=== PATIENT | female | born 1990 | race Caucasian/White ===

== ENCOUNTER 2016-07-18 13:02 | Emergency (ER) | payer MEDICAID, OTHER ==
[2016-07-18 13:16] VITALS: BP 153/87
--- NOTE | 2016-07-18 13:33 | UC ---
UC General HPI - HPI Summary HPI Summary: complaint of bumps under her left axilla that she noticed 3 days ago painful when she moves her arm using hot compresses with some relief not able to reduce the swelling taking tylenol and ibuprofen with some relief hx of MRSA - History of Current Complaint Chief Complaint: UCSkin Stated Complaint: SKIN COMPLAINT Time Seen by Provider: 07/18/16 13:15 Hx Obtained From: Patient - Allergy/Home Medications Allergies/Adverse Reactions: Allergies Allergy/AdvReac Type Severity Reaction Status Date / Time Aspirin Allergy Severe Altered Verified 07/18/16 13:09 Mental Status Penicillins [PCN] Allergy Severe Airway Verified 07/18/16 13:09 Obstruction Latex Allergy Hives Verified 07/18/16 13:09 PMH/Surg Hx/FS Hx/Imm Hx Previously Healthy: Yes Endocrine History Of: Denies: Diabetes, Thyroid Disease Cardiovascular History Of: Reports: Hypertension - NO MEDS Denies: Cardiac Disorders Respiratory History Of: Reports: Asthma - On meds Denies: COPD GI/ History Of: Denies: Ulcer Psychological History Of: Reports: Anxiety, Depression - Surgical History Surgical History: Yes Surgery Procedure, Year, and Place: "fluid removed from eardrums". Tonsillectomy. Adenoidectomy - Family History Known Family History: Positive: Cardiac Disease, Hypertension, Diabetes, Other - noncontributory Family History: NON CONTRIBUTORY - Social History Lives: With Family Alcohol Use: None Substance Use Type: None Substance Use Comment - Amount & Last Used: unk pt states occasionally Smoking Status (MU): Heavy Every Day Tobacco Smoker Type: Cigarettes Amount Used/How Often: 1/2 PPD Have You Smoked in the Last Year: No Cessation Counseling: Patient Advised to Stop - Immunization History Most Recent Influenza Vaccination: never Most Recent Tetanus Shot: unknown Most Recent Pneumonia Vaccination: never Review of Systems Constitutional: Negative Skin: Other - swelling in axilla Eyes: Negative ENT: Negative Respiratory: Negative Cardiovascular: Negative Gastrointestinal: Negative Genitourinary: Negative Motor: Negative Neurovascular: Negative Musculoskeletal: Negative Neurological: Negative Psychological: Negative All Other Systems Reviewed And Are Negative: Yes Physical Exam Triage Information Reviewed: Yes Appearance: No Pain Distress, Obese Vital Signs: Initial Vital Signs Temp 98 F 07/18/16 13:10 Pulse 96 07/18/16 13:10 Resp 18 07/18/16 13:10 BP 153/87 07/18/16 13:10 Pulse Ox 98 07/18/16 13:10 Vital Signs Reviewed: Yes Eyes: Positive: Conjunctiva Clear ENT: Positive: Pharynx normal, TMs normal. Negative: Nasal congestion Neck: Positive: No Lymphadenopathy Respiratory: Positive: Lungs clear, Normal breath sounds, No respiratory distress Cardiovascular: Positive: RRR, No Murmur, Pulses Normal Abdomen Description: Positive: Nontender, Soft, Distended Bowel Sounds: Positive: Present Musculoskeletal: Positive: No Edema Neurological: Positive: Alert Psychological Exam: Normal Skin: Positive: Other - left axilla- 2 small lumps in left axilla- no fluctant beneath -firm to touch slight erythema Course/Dx - Course Course Of Treatment: exam completed. no indication for I&D. will start on bactrim and send to dermatology for further evaluation of chronic hidranitis supprative - Differential Dx - Multi-Symptom Provider Diagnoses: hidradenitis supperative Discharge - Discharge Plan Condition: Stable Disposition: HOME Prescriptions: Acetaminophen TAB* [Tylenol TAB*] 650 mg PO Q6H PRN #20 tab PRN Reason: Pain Mupirocin 2% OINT* [Bactroban 2 % Oint*] 1 applic TOPICAL BID #1 tube Sulfamethox/Trimethoprim DS* [Bactrim DS 800/160 TAB*] 1 tab PO BID #14 tab Patient Education Materials: Sulfamethoxazole/Trimethoprim (By mouth) Referrals: Chloé Otto [Medical Doctor] - Yonatan Watson NP [Primary Care Provider] - Additional Instructions: start antibiotic as directed continue to use warm compresses twice a day apply bactroban to any red ariana in axilla or groin as needed please call Dr Hein for further evaluation of hidrandenitis suppurative which may require surgery
== END 2016-07-18 13:56 | disposition home or self-care (01) ==
LOC: UCEAST 13:02
DX: L73.2 Hidradenitis suppurativa (principal); Z88.6 Allergy status to analgesic agent; Z88.0 Allergy status to penicillin
CPT/HCPCS: 99212; G0463

== ENCOUNTER → 2016-09-13 | Emergency (ER) | payer MEDICAID, OTHER ==
[~2016-09-13] MED LIST: Ketorolac INJ* 60 MG/2 ML VIAL IM ONE
--- NOTE | 2016-09-13 13:50 | UC ---
Knee Pain HPI - HPI Summary HPI Summary: Patient was walking down a hill two weeks aog, and hyperextended her knee, pain in the back of the knee and grining when she straightens her knee, also has some sinus pressure and congestion - History of Current Complaint Stated Complaint: KNEE PAIN Time Seen by Provider: 09/13/16 13:50 Hx Obtained From: Patient Hx Last Menstrual Period: 8 MONTHS AGO ?: No Onset/Duration: Sudden Onset, Lasting Weeks Severity Initially: Moderate Severity Currently: Moderate Pain Intensity: 6 Pain Scale Used: 0-10 Numeric Character: Dull, Aching Aggravating Factor(s): Weight Bearing, Prolonged Standing, Stairs Associated Signs And Symptoms: Positive: Swelling Able to Bear Weight: Yes - Risk Factors Septic Arthritis Risk Factor: Negative - Allergies/Home Medications Allergies/Adverse Reactions: Allergies Allergy/AdvReac Type Severity Reaction Status Date / Time Aspirin Allergy Severe Altered Verified 09/13/16 13:54 Mental Status Penicillins [PCN] Allergy Severe Airway Verified 09/13/16 13:54 Obstruction Latex Allergy Hives Verified 09/13/16 13:54 Home Medications: Home Medications DULoxetine CAP* [Cymbalta CAP*] 1 09/13/16 [History] PMH/Surg Hx/FS Hx/Imm Hx Previously Healthy: Yes Endocrine History Of: Denies: Diabetes, Thyroid Disease Cardiovascular History Of: Reports: Hypertension - NO MEDS Denies: Cardiac Disorders Respiratory History Of: Reports: Asthma - On meds Denies: COPD GI/ History Of: Denies: Ulcer Psychological History Of: Reports: Anxiety, Depression - Surgical History Surgical History: Yes Surgery Procedure, Year, and Place: "fluid removed from eardrums". Tonsillectomy. Adenoidectomy - Family History Known Family History: Positive: Cardiac Disease, Hypertension, Diabetes, Other - noncontributory Family History: NON CONTRIBUTORY - Social History Alcohol Use: None Substance Use Type: None Substance Use Comment - Amount & Last Used: unk pt states occasionally Smoking Status (MU): Heavy Every Day Tobacco Smoker Type: Cigarettes Amount Used/How Often: 1/2 PPD Have You Smoked in the Last Year: No - Immunization History Most Recent Influenza Vaccination: never Most Recent Tetanus Shot: unknown Most Recent Pneumonia Vaccination: never Review of Systems Constitutional: Negative Skin: Negative Eyes: Negative ENT: Ear Ache, Nasal Discharge Respiratory: Negative Cardiovascular: Negative Gastrointestinal: Negative Genitourinary: Negative Motor: Negative Neurovascular: Negative Musculoskeletal: Arthralgia, Myalgia Neurological: Negative Psychological: Negative All Other Systems Reviewed And Are Negative: Yes Physical Exam Triage Information Reviewed: Yes Appearance: Well-Appearing, Pain Distress, Obese Vital Signs Reviewed: Yes Eye Exam: Normal Eyes: Positive: Conjunctiva Clear ENT: Positive: Pharynx normal, Other: - bilatera external canals have purulent exudate, Dental Exam: Normal Neck exam: Normal Neck: Positive: Supple, Nontender, No Lymphadenopathy Respiratory Exam: Normal Respiratory: Positive: Chest non-tender, Lungs clear, Normal breath sounds Cardiovascular Exam: Normal Cardiovascular: Positive: RRR, No Murmur, Pulses Normal Abdominal Exam: Normal Abdomen Description: Positive: Nontender, No Organomegaly, Soft Bowel Sounds: Positive: Present Musculoskeletal: Positive: Strength Intact, ROM Intact, No Edema, Other: - Patient has full ROM, chondromalacia noted in bilateral knees. pain with movment in beely of hamsting Neurological Exam: Normal Neurological: Positive: Alert, Muscle Tone Normal Psychological Exam: Normal Knee Pain Course/Dx - Course Course Of Treatment: hx obtained, exam performed, ROm assessed, treated for hamstring strain and bilateral otitis externa - Differential Dx/Diagnosis Differential Diagnosis/HQI/PQRI: Contusion, Sprain, Strain Provider Diagnoses: right hamstring strain. bilateral otitis externa Discharge - Discharge Plan Condition: Stable Disposition: HOME Patient Education Materials: Hamstring Injury (ED), Otitis Externa (ED) Referrals: Yonatan Watson NP [Primary Care Provider] - Rosalee Martinez MD [Medical Doctor] - Additional Instructions: take the medications as prescribed. rest your leg, DO NOT TAKE ANY EXTRA IBUPROFEN TODAY DUE TO YOUR SHOT OF TORADOL NOR WHILE YOU ARE ON THE MELOXICAM. Follow up with Dr Martinez if symptoms do not improve in 2 weeks.
[2016-09-13 13:54] VITALS: BP 159/102
== END | disposition home or self-care (01) ==
LOC: UCEAST 12:44
DX: S86.811A Strain of other muscle(s) and tendon(s) at lower leg level, right leg, initial encounter (principal); X58.XXXA Exposure to other specified factors, initial encounter; Y93.01 Activity, walking, marching and hiking; Y92.828 Other wilderness area as the place of occurrence of the external cause; H60.93 Unspecified otitis externa, bilateral; E66.9 Obesity, unspecified; Z88.6 Allergy status to analgesic agent; Z88.0 Allergy status to penicillin; F17.210 Nicotine dependence, cigarettes, uncomplicated
CPT/HCPCS: 96372; 99212; G0463; J1885

== ENCOUNTER 2016-10-04 19:39 | Emergency (ER) | payer OTHER ==
[2016-10-04 20:01] VITALS: BP 136/80
[2016-10-04] MEDS ORDERED: Ketorolac INJ* 60 MG/2 ML VIAL IM ONE (20:09)
--- NOTE | 2016-10-04 21:23 | RAD ---
Indication: Back pain. 3 views of the lumbar spine are reviewed. The vertebral bodies appear normal in height. Disc spaces all well-preserved. Pedicles appear intact. IMPRESSION: No fracture of the lumbar spine is noted.
[2016-10-04] MEDS ORDERED: Cyclobenzaprine TAB* 10 MG PO ONE (21:25)
--- NOTE | 2016-10-04 21:39 | UC ---
Back Pain HPI - HPI Summary HPI Summary: FALL THREE DAYS AGO BACKWARDS DOWN FLIGHT OF 12 STEPS. SINCE TIME OF INJURY HAS FELT LOW BACK PAIN THAT RADIATES DOWN GLUTEUS. ABLE TO WALK, BUT PAIN WITH BENDING TWISTING, WEIGHT BEARING. NO KNOWN BRUISING. HX OF SCIATIC PAIN IN PAST , SEVERAL YEARS AGO, THIS FEELS SAME/SIMILAR. HAD BEEN TAKING IBUPROFEN WITH NO RELIEF. - History of Current Complaint Hx Obtained From: Patient Hx Last Menstrual Period: 1 year ago ?: No Onset/Duration: Sudden Onset, Lasting Days, Still Present Timing: Constant Severity Initially: Moderate Severity Currently: Moderate Back Pain: Is Discrete @ - LOW BACK, Radiates To - GLUTEUS Character: Dull, Aching, Throbbing, Spasmodic Aggravating: Movement, Lifting, Bending, Walking Alleviating: Rest, Position, Cold, OTC Meds Associated Signs And Symptoms: Positive: Pain with Weight Bearing. Negative: Swelling, Redness, Bruising, Weakness, Numbness, Tingling, Abdominal Pain, Flank Pain, Bladder Incontinence, Bowel Incontinence, Weight Loss Related History: Previous Back Injury - Risk Factors AAA Risk Factors: Negative TAD Risk Factors: Negative Cauda Equina Risk Factors: Negative Epidural Abscess Risk Factors: Negative <Andrei Holcomb - Last Filed: 10/04/16 21:33> <Alejandro Pierce - Last Filed: 10/07/16 11:11> - History of Current Complaint Chief Complaint: UCBackPain Stated Complaint: BACK PAIN Time Seen by Provider: 10/04/16 19:45 - Allergies/Home Medications Allergies/Adverse Reactions: Allergies Allergy/AdvReac Type Severity Reaction Status Date / Time Aspirin Allergy Severe Altered Verified 10/04/16 19:47 Mental Status Penicillins [PCN] Allergy Severe Airway Verified 10/04/16 19:47 Obstruction Latex Allergy Hives Verified 10/04/16 19:47 Home Medications: Home Medications Ibuprofen [Ibuprofen 200 MG] 200 mg PO Q6H PRN 10/04/16 [History Confirmed 10/04] PMH/Surg Hx/FS Hx/Imm Hx Previously Healthy: Yes Endocrine History Of: Denies: Diabetes, Thyroid Disease Cardiovascular History Of: Reports: Hypertension - on med; does not know which one Denies: Cardiac Disorders Respiratory History Of: Reports: Asthma Denies: COPD GI/ History Of: Denies: Ulcer Psychological History Of: Reports: Anxiety, Depression - Surgical History Surgical History: Yes Surgery Procedure, Year, and Place: "fluid removed from eardrums". Tonsillectomy. Adenoidectomy - Family History Known Family History: Positive: Cardiac Disease, Hypertension, Diabetes, Other - noncontributory Family History: NON CONTRIBUTORY - Social History Alcohol Use: None Substance Use Type: None Substance Use Comment - Amount & Last Used: unk pt states occasionally Smoking Status (MU): Current Some Day Smoker Type: Cigarettes Amount Used/How Often: 1/2 PPD Have You Smoked in the Last Year: No - Immunization History Most Recent Influenza Vaccination: fall 2015 Most Recent Tetanus Shot: unknown Most Recent Pneumonia Vaccination: never <Andrei Holcomb - Last Filed: 10/04/16 21:33> Review of Systems Constitutional: Negative Skin: Negative Eyes: Negative ENT: Negative Respiratory: Negative Cardiovascular: Negative Gastrointestinal: Negative Genitourinary: Negative Motor: Negative Neurovascular: Negative Musculoskeletal: Arthralgia, Myalgia Neurological: Negative Psychological: Negative All Other Systems Reviewed And Are Negative: Yes <Andrei Holcomb - Last Filed: 10/04/16 21:33> Physical Exam Triage Information Reviewed: Yes Appearance: Well-Appearing, Well-Nourished, Pain Distress - MODERATE, Obese Vital Signs: Initial Vital Signs Temp 97.9 F 10/04/16 19:51 Pulse 96 10/04/16 19:51 Resp 16 10/04/16 19:51 BP 136/80 10/04/16 19:51 Pulse Ox 98 10/04/16 19:51 Vital Signs Reviewed: Yes Eye Exam: Normal Eyes: Positive: Conjunctiva Clear ENT Exam: Normal ENT: Positive: Normal ENT inspection, Hearing grossly normal, TMs normal Dental Exam: Normal Neck exam: Normal Neck: Positive: Supple, Nontender, No Lymphadenopathy Respiratory Exam: Normal Respiratory: Positive: Chest non-tender, Lungs clear, Normal breath sounds, No respiratory distress, No accessory muscle use Cardiovascular Exam: Normal Cardiovascular: Positive: RRR, No Murmur, Pulses Normal Abdominal Exam: Normal Abdomen Description: Positive: Nontender, No Organomegaly, Soft. Negative: CVA Tenderness (R), CVA Tenderness (L) Musculoskeletal: Positive: Strength Intact, ROM Intact, No Edema, Other: - POSITIVE BILAT STRAIGHT LEG RAISE TEST Neurological Exam: Normal Neurological: Positive: Alert, Muscle Tone Normal Psychological Exam: Normal Psychological: Positive: Normal Response To Family Skin Exam: Normal <AichaAndrei - Last Filed: 10/04/16 21:33> Vital Signs: Initial Vital Signs Temp 97.9 F 10/04/16 19:51 Pulse 96 10/04/16 19:51 Resp 16 10/04/16 19:51 BP 136/80 10/04/16 19:51 Pulse Ox 98 10/04/16 19:51 <Alejandro Pierce - Last Filed: 10/07/16 11:11> Back Pain Course/Dx - Differential Dx/Diagnosis Differential Diagnosis/HQI/PQRI: Fracture, Herniated Disc, Strain, Sprain Provider Diagnoses: LOW BACK CONTUSION MUSCLE STRAIN <AichaAndrei - Last Filed: 10/04/16 21:33> - Course Course Of Treatment: I was available for consultation. This patient was seen by mid level provider. The patient was not presented, seen, or examined by me. WR. <Alejandro Pierce - Last Filed: 10/07/16 11:11> Discharge <AichaAndrei - Last Filed: 10/04/16 21:33> <Alejandro Pierce - Last Filed: 10/07/16 11:11> - Discharge Plan Condition: Stable Disposition: HOME Prescriptions: Cyclobenzaprine TAB* [Flexeril 10 MG TAB*] 10 mg PO TID PRN #15 tab PRN Reason: Spasms Lidocaine PATCH 5%* [Lidoderm 5% Patch*] 2 patch TRANSDERM DAILY #6 patch Naproxen [Naproxen 500 MG TABS] 500 mg PO BID #10 tab Patient Education Materials: Low Back Strain (ED), Acute Low Back Pain (ED) Referrals: Mali Yost MD [Primary Care Provider] - Yonatan Watson NP [Nurse Practitioner] - Additional Instructions: PHYSICAL THERAPY REFERRAL: You have been prescribed physical therapy. Treatments may include stretching, exercise, application of heat or cold, and other modalities. After an injury, PT can reduce swelling and pain. In recovery, PT is used to restore mobility and strength. Your specific treatment goals are: ___X__ Reduction of Swelling (EGS, US, ice as needed) ___X__ Pain Reduction (EGS, US, ice as needed) ____X_ TENS Pack Fitting and Instruction Wound Hydrotherapy ___X__ Preservation of Mobility ___X__ Sikhism of Mobility ___X__ Strength Sikhism ___X__ Work or Sports Hardening This instruction sheet also serves as your PHYSICAL THERAPY REFERRAL! Please take it with you to the therapist, so he/she will be aware of your diagnosis and treatment plan. You may see the physical therapist of your choice for these treatments, but may wish to check with your insurance to be sure the provider you select is covered. It's important to see the doctor to whom you have been referred for follow up.
== END 2016-10-04 21:38 | disposition home or self-care (01) ==
LOC: UCEAST 19:39
DX: S30.0XXA Contusion of lower back and pelvis, initial encounter (principal); S39.012A Strain of muscle, fascia and tendon of lower back, initial encounter; W10.9XXA Fall (on) (from) unspecified stairs and steps, initial encounter; Y93.9 Activity, unspecified; Y92.9 Unspecified place or not applicable; I10 Essential (primary) hypertension; E66.9 Obesity, unspecified; Z32.02 Encounter for pregnancy test, result negative; Z88.6 Allergy status to analgesic agent; Z88.0 Allergy status to penicillin; Z72.0 Tobacco use
CPT/HCPCS: 72100; 81003; 84702; 99212; A9270-GY; G0463; J1885

== ENCOUNTER 2016-11-26 14:48 | Emergency (ER) | payer OTHER ==
[2016-11-26 15:23] VITALS: BP 139/110
--- NOTE | 2016-11-26 16:10 | UC ---
Abdominal Pain Female HPI - HPI Summary HPI Summary: The patient comes in today for: 1. Left-sided abdominal pain: Onset: 3 days. Sudden onset. She went to sleep and then woke up and found the pain there. Palliative/provocative: Moving, coughing, laughing makes it hurt more. Quality: Stabbing sensation. Region: LUQ and radiates down. Severity: 7/10 Time: Constant today. Associated symptoms: LMP: Unknown. Last BM: This morning--normal. Previous treatment: Warm compresses, Tylenol, showers--none helped. Fevers: None known, but she complains of cold chills. Vomiting: NOne. Diarrhea: None. 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 Hx Last Menstrual Period: March 18, 2016 Allergies/Adverse Reactions: Allergies Allergy/AdvReac Type Severity Reaction Status Date / Time Aspirin Allergy Severe Altered Verified 11/26/16 15:23 Mental Status Penicillins [PCN] Allergy Severe Airway Verified 11/26/16 15:23 Obstruction Latex Allergy Hives Verified 11/26/16 15:23 Home Medications: Home Medications Lansoprazole CAP (NF) [Prevacid CAP (NF)] 11/26/16 [History] PMH/Surg Hx/FS Hx/Imm Hx Previously Healthy: No Endocrine History Of: Denies: Diabetes, Thyroid Disease, Hyperthyroidism, Hypothyroidism, Dyslipidemia Cardiovascular History Of: Reports: Hypertension - on med; does not know which one Denies: Cardiac Disorders, Pacemaker/ICD, Myocardial Infarction, Congestive Heart Failure, Atrial Fibrillation, Deep Vein Thrombosis, Bleeding Disorders Respiratory History Of: Reports: Asthma Denies: COPD, Bronchitis, Pneumonia, Pulmonary Embolism GI/ History Of: Reports: Gastroesophageal Reflux Denies: Ulcer, Gastrointestinal Bleed, Gall Bladder Disease, Kidney Stones, Diverticulitis, Renal Disease, Urosepsis Neurological History Of: Reports: Migraine - "I get them quite frequently." But takes no Rx. Denies: TIA, CVA, Dementia, Seizures Psychological History Of: Reports: Anxiety, Depression Denies: Bipolar Disorder, Schizophrenia, Post Traumatic Stress Disorder Cancer History Of: Denies: Lung Cancer, Colorectal Cancer, Breast Cancer, Prostate Cancer, Cervical Cancer Other History Of: Negative For: HIV, Hepatitis B, Hepatitis C, Anticoagulant Therapy - Surgical History Surgical History: Yes Surgery Procedure, Year, and Place: "fluid removed from eardrums". Tonsillectomy. Adenoidectomy - Family History Known Family History: Positive: Cardiac Disease, Hypertension, Diabetes, Other - noncontributory Family History: NON CONTRIBUTORY - Social History Occupation: Unemployed Alcohol Use: None Substance Use Type: None Substance Use Comment - Amount & Last Used: unk pt states occasionally Smoking Status (MU): Light Every Day Tobacco Smoker Type: Cigarettes Amount Used/How Often: 1/2 PPD Have You Smoked in the Last Year: No - Immunization History Most Recent Influenza Vaccination: fall 2015 Most Recent Tetanus Shot: unknown Most Recent Pneumonia Vaccination: never Review of Systems Constitutional: Negative Skin: Rash Eyes: Negative ENT: Negative Respiratory: Negative Cardiovascular: Negative Gastrointestinal: Abdominal Pain Genitourinary: Negative Motor: Negative All Other Systems Reviewed And Are Negative: Yes Physical Exam Triage Information Reviewed: Yes Appearance: Well-Appearing, No Pain Distress - During the abdominal exam, there was no grimacing and after the exam she was animated, and smiling and laughing. , Well-Nourished Vital Signs: Initial Vital Signs Temp 97.4 F 11/26/16 15:13 Pulse 89 11/26/16 15:13 Resp 16 11/26/16 15:13 BP 139/110 11/26/16 15:13 Pulse Ox 100 11/26/16 15:13 Vital Signs Reviewed: Yes Eyes: Positive: Conjunctiva Clear. Negative: Discharge ENT: Positive: Hearing grossly normal. Negative: Pharyngeal erythema, Nasal congestion, Nasal drainage, TM bulging, TM dull, TM red, Tonsillar swelling, Tonsillar exudate Dental: Negative: Gross Decay/Caries @, Dental Fracture @ Neck: Positive: Supple, Nontender, No Lymphadenopathy. Negative: Nuchal Rigidity Respiratory: Positive: Chest non-tender, Lungs clear, No respiratory distress, No accessory muscle use. Negative: Crackles, Wheezing Cardiovascular: Positive: RRR, No Murmur Abdomen Description: Positive: No Organomegaly, Soft. Negative: Nontender - The abdominal exam was very difficult due to the amount of adipose tissue she has. There was tenderness to palpation of the RUQ and the LUQ. There was no obvious peritoneal signs, but again due to the adipose tissue, it was difficult to say., Distended, Guarding Musculoskeletal: Positive: Strength Intact, ROM Intact, No Edema Neurological: Positive: Alert, Muscle Tone Normal Psychological: Positive: Age Appropriate Behavior, Consolable Skin: Negative: rashes, breakdown Abd Pain Female Course/Dx - Course Course Of Treatment: The patient was told that I was not able to exactly diagnose the cause of her abdominal pain and therefore suggested that she go to the ER for further and more in depth evaluation than what we can do here. She did not want to do this and said instead, she was going to wait until she sees her primary care provider about mid week next week. She was told that if she did not go to the ER, she should reconsider if she gets worse. - Differential Dx/Diagnosis Provider Diagnoses: high blood pressure. abdominal pain Discharge - Discharge Plan Condition: Stable Disposition: AGAINST MEDICAL ADVICE Additional Instructions: If you are not going to the ER for evaluation of your abdominal pain, please reconsider if you get worse. Please see your primary care provider as soon as you can for your abdominal pain and high blood pressure.
== END 2016-11-26 16:30 | disposition left against medical advice (07) ==
LOC: UCEAST 14:48
DX: R10.12 Left upper quadrant pain (principal); R10.11 Right upper quadrant pain; I10 Essential (primary) hypertension; J45.909 Unspecified asthma, uncomplicated; K21.9 Gastro-esophageal reflux disease without esophagitis; G43.909 Migraine, unspecified, not intractable, without status migrainosus; F41.8 Other specified anxiety disorders; Z88.6 Allergy status to analgesic agent; Z88.0 Allergy status to penicillin; Z91.040 Latex allergy status; F17.210 Nicotine dependence, cigarettes, uncomplicated
CPT/HCPCS: 99201; G0463

== ENCOUNTER → 2016-11-27 13:41 | Emergency (ER) | payer OTHER ==
[~2016-11-27 13:41] MED LIST changes: +Al Hydrox/Mg Hydrox/Simet LIQ* 30 ML UDC PO ONE; +HYDROcodone/ACETAMIN 5-325 MG* 1 TAB PO ONE; -Ketorolac INJ* 60 MG/2 ML VIAL IM ONE; +Lidocaine 2% VISCOUS* 15 ML UDC PO ONE
[2016-11-27 15:00] LABS: Urine Bilirubin Negative (Negative); Urine Glucose Negative (Negative); Urine Nitrite Negative (Negative)
[2016-11-27 15:30] LABS: Hematocrit 43 % (35-47); Hemoglobin 14.2 g/dl (12.0-16.0); Mean Corpuscular HGB Conc 33 g/dl (31-36); Mean Corpuscular Hemoglobin 30 pg (27-31); Mean Corpuscular Volume 90 fL (80-97); Mean Platelet Volume 8 um3 (7.4-10.4); Red Cell Distribution Width 14 % (10.5-15)
[2016-11-27 15:48] LABS: ALT 20 U/L (7-52); AST 13 U/L (13-39); Albumin 3.9 g/dL (3.2-5.2); Alkaline Phosphatase 60 U/L (34-104); Anion Gap 5 mmol/L (2-11); BUN/Creatinine Ratio 11.8 (8-20); Blood Urea Nitrogen 10 mg/dL (6-24); C Reactive Protein 16.66 mg/L (< 5.00); CO2 Carbon Dioxide 30 mmol/L (22-32); Calcium 9.6 mg/dL (8.6-10.3); Chloride 101 mmol/L (101-111); EGFR African American 102.4 (>60); EGFR Non-African American 79.6 (>60); Globulin 3.5 g/dL (2-4); Glucose 85 mg/dL (70-100); Lipase 21 U/L (11.0-82.0); Potassium 3.9 mmol/L (3.5-5.0); Sodium 136 mmol/L (133-145); Total Protein 7.4 g/dL (6.4-8.9)
--- NOTE | 2016-11-27 16:18 | RAD ---
INDICATION: Right upper quadrant pain. COMPARISON: Comparison is made with a prior CT of the abdomen and pelvis from May 31, 2007. TECHNIQUE: Multiple real-time images of the right upper quadrant were obtained. FINDINGS: The gallbladder appear normal. No gallbladder wall thickening or pericholecystic fluid is present. No intra or extrahepatic ductal distention is present. The common bile duct measured 0.5 cm in diameter. The liver is normal in size and increased in echogenicity most consistent with fatty infiltration. No focal hepatic abnormality is seen. The pancreas is partially obscured by overlying bowel gas. The right kidney is normal in size without evidence for hydronephrosis. IMPRESSION: 1. NORMAL EXAM OF THE GALLBLADDER. 2. FINDINGS MOST CONSISTENT WITH HEPATIC STEATOSIS.
--- NOTE | 2016-11-27 18:09 | RAD ---
INDICATION: Left flank abdominal pain. COMPARISON: Comparison is made with a prior CT of the abdomen and pelvis from May 31, 2007. TECHNIQUE: A CT scan of the abdomen and pelvis was performed without intravenous or oral contrast. Contiguous axial sections were obtained from the lung bases through the symphysis pubis. Images were reconstructed in the coronal and sagittal planes. FINDINGS: The lung bases are clear. No pleural effusion is present. The liver appears mildly enlarged. No focal abnormality is seen on this noncontrast study. No calcified gallstones are noted. The spleen is within normal limits in size. The pancreas appears to be within normal limits. The adrenal glands and kidneys are normal in size. No renal calculi or hydronephrosis is seen. No ureteral or bladder calculi are seen. The aorta is normal in caliber without significant calcific plaque. No significant enlarged retroperitoneal lymph nodes are seen. The stomach, small and large bowel appear nondistended. The appendix is within normal limits. There are diverticuli scattered throughout the colon. There is no evidence for diverticulitis or colitis. There is a small periumbilical hernia containing fat. The uterus is anteverted and normal in size. The right ovary appears slightly prominent although unchanged from the prior CT study. No free intraperitoneal air or fluid is seen. No significant focal osseous abnormality is seen. IMPRESSION: NO EVIDENCE FOR ACUTE FINDING OR CAUSE FOR THE PATIENT'S ABDOMINAL PAIN IS SEEN.
[2016-11-27 18:42] VITALS: BP 140/74
--- NOTE | 2016-11-28 14:31 | ED ---
Raymond Aquino SooYoung, scribed for Arun Johns MD on 11/27/16 at 1446 . Abdominal Pain/Female - HPI Summary HPI Summary: A 26 y/o F presents to ED with c/o intermittent LUQ pain onset approx four days ago. Pt went to [facility] last [place] for same sx, they referred her to ED, but she went home. Associated sx: nausea onset today. Denies: v/d, fever, chills, melena. She describes her baseline including chills. Non drinker, mild smoker. PSHx: tonsillectomy, adenoids. She rates the pain as 9 out of 10. - History of Current Complaint Chief Complaint: EDAbdPain Stated Complaint: ABD PAIN Time Seen by Provider: 11/27/16 14:27 Hx Obtained From: Patient Hx Last Menstrual Period: March 18, 2016 Onset/Duration: Lasting Days, Still Present Timing: Intermittent Episode Lasting Severity Currently: Severe Pain Intensity: 9 Pain Scale Used: 0-10 Numeric Location: Discrete At: LUQ Associated Signs and Symptoms: Positive: Nausea. Negative: Fever, Vomiting, Diarrhea Allergies/Adverse Reactions: Allergies Allergy/AdvReac Type Severity Reaction Status Date / Time Aspirin Allergy Severe Altered Verified 11/27/16 14:37 Mental Status Penicillins [PCN] Allergy Severe Airway Verified 11/27/16 14:37 Obstruction Latex Allergy Hives Verified 11/27/16 14:37 PMH/Surg Hx/FS Hx/Imm Hx Previously Healthy: No Endocrine/Hematology History: Denies: Hx Anticoagulant Therapy, Hx Diabetes, Hx Thyroid Disease Cardiovascular History: Reports: Hx Hypertension - on med; does not know which one Denies: Hx Congestive Heart Failure, Hx Deep Vein Thrombosis, Hx Myocardial Infarction, Hx Pacemaker/ICD Respiratory History: Reports: Hx Asthma Denies: Hx Chronic Obstructive Pulmonary Disease (COPD), Hx Lung Cancer, Hx Pneumonia, Hx Pulmonary Embolism GI History: Denies: Hx Gall Bladder Disease, Hx Gastrointestinal Bleed, Hx Ulcer, Hx Urosepsis History: Denies: Hx Kidney Stones, Hx Renal Disease Neurological History: Reports: Hx Migraine - "I get them quite frequently." But takes no Rx. Denies: Hx Dementia, Hx Seizures, Hx Transient Ischemic Attacks (TIA) Psychiatric History: Reports: Hx Anxiety, Hx Depression, Hx Substance Abuse Denies: Hx Schizophrenia, Hx Bipolar Disorder - Surgical History Surgery Procedure, Year, and Place: "fluid removed from eardrums". Tonsillectomy. 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 Denies: Hx Clostridium Difficile, Hx Hepatitis, Hx Human Immunodeficiency Virus (HIV), Hx Shingles, Hx Tuberculosis, Hx Known/Suspected VRE, Hx Known/ Suspected VRSA, History Other Infectious Disease, Traveled Outside the [place] in Last 30 Days - Family History Known Family History: Positive: Cardiac Disease, Hypertension, Diabetes, Other - noncontributory - Social History Occupation: Unemployed Lives: With Family Alcohol Use: None Hx Substance Use: Yes Substance Use Type: Reports: Marijuana Substance Use Comment - Amount & Last Used: occasional use Hx Tobacco Use: Yes Smoking Status (MU): Light Every Day Tobacco Smoker Type: Cigarettes Amount Used/How Often: 1/2 PPD Have You Smoked in the Last Year: No Review of Systems Negative: Fever, Chills Negative: Erythema Negative: Sore Throat Negative: Chest Pain Negative: Shortness Of Breath, Cough Positive: Abdominal Pain, Nausea. Negative: Vomiting, Diarrhea Positive: other - neg: melena. Negative: dysuria, flank pain Negative: Myalgia, Edema Negative: Rash Neurological: Other - neg: dizziness All Other Systems Reviewed And Are Negative: Yes Physical Exam - Summary Physical Exam Summary: Constitutional: Well-developed, Well-nourished, Alert. (-) Distressed Skin: Warm, Dry HENT: Normocephalic; Atraumatic Eyes: Conjunctiva normal Neck: Musculoskeletal ROM normal neck. (-) JVD, (-) Stridor, (-) Tracheal deviation Cardio: Rhythm regular, rate normal, Heart sounds normal; Intact distal pulses; The pedal pulses are 2+ and symmetric. Radial pulses are 2+ and symmetric. (-) Murmur Pulmonary/Chest wall: Effort normal. (-) Respiratory distress, (-) Wheezes, (-) Rales Abd: Soft, (-) Distension, (-) Guarding, (-) Rebound; MILD RUQ AND EPIGASTRIC TENDERNESS Musculoskeletal: (-) Edema Lymph: (-) Cervical adenopathy Neuro: Alert, Oriented x3 Psych: Mood and affect Normal Triage Information Reviewed: Yes Vital Signs On Initial Exam: Initial Vitals Temp Pulse Resp BP 97.1 F 86 18 174/94 11/27/16 13:42 11/27/16 13:42 11/27/16 13:42 11/27/16 13:42 Vital Signs Reviewed: Yes - [place] Coma Scale Coma Scale Total: 15 Diagnostics - Vital Signs Vital Signs Temp Pulse Resp BP Pulse Ox 11/27/16 14:37 97.7 F 84 18 132/89 100 11/27/16 13:42 97.1 F 86 18 174/94 - Laboratory Result Diagrams: 11/27/16 15:20 11/27/16 15:20 Lab Statement: Any lab studies that have been ordered have been reviewed, and results considered in the medical decision making process. - CT A/P CT CT Interpretation: No Acute Changes - IMPRESSION: NO EVIDENCE FOR ACUTE FINDING OR CAUSE FOR THE PATIENT'S ABDOMINAL PAIN IS SEEN. CT Interpretation Completed By: Radiologist - Ultrasound No standard instances Ultrasound Interpretation: Positive (See Comments) - Gallbladder US: IMPRESSION : 1. NORMAL EXAM OF THE GALLBLADDER. 2. FINDINGS MOST CONSISTENT WITH HEPATIC STEATOSIS. Ultrasound Interpretation Completed By: Radiologist Re-Evaluation - Re-Evaluation 1 Re-Evaluation Time: 17:01 Change: Unchanged Comment: Discussing results with pt and family. No improvement with GI cocktail. 2 Re-Evaluation Time: 18:16 Change: Improved Comment: Discussing CT results with pt. Pt feeling better. Palpated umbilicus and no palpable hernia, no tenderness, no pain. No menses. Abdominal Pain Fem Course/Dx - Course Course Of Treatment: Pt is a 26 y/o F presenting with intermittent LUQ pain onset approx four days ago. Pt went to [facility] last night for same sx, they referred her to ED, but she went home. Associated sx: nausea onset today. Denies : v/d, fever, chills, melena. Pt given GI cocktail, [place] in ED. Gallbladder US shows "1. NORMAL EXAM OF THE GALLBLADDER. 2. FINDINGS MOST CONSISTENT WITH HEPATIC STEATOSIS.". UA results are negative. Elevated CRP. A/P CT is negative. Will D/C home with Nexium, Percocet. F/U on Tuesday with PCP. - Diagnoses Provider Diagnoses: Epigastric pain Discharge - Discharge Plan Condition: Stable Disposition: HOME Prescriptions: Esomeprazole Magnesium [Nexium] 40 mg PO DAILY #30 tab oxyCODONE/Acetamin 5/325 MG* [Percocet 5/325 TAB*] 1 - 2 tab PO Q6H PRN #8 tab MDD 8 PRN Reason: Pain Scale 6-10 Patient Education Materials: Oxycodone/Acetaminophen (By mouth), Esomeprazole ( By mouth), Epigastric Pain (ED) Referrals: Yonatan Watson WEB SERVICES PROFESSIONAL [Primary Care Provider] - 2 Days Additional Instructions: Follow up with your primary care provider on Tuesday. Return to the emergency department for changing or worsening symptoms. The documentation as recorded by the Raymond foley SooYoung accurately reflects the service I personally performed and the decisions made by , Arun Johns MD.
== END | disposition home or self-care (01) ==
LOC: ED 13:41
DX: R10.13 Epigastric pain (principal); R10.12 Left upper quadrant pain; R11.0 Nausea; F17.210 Nicotine dependence, cigarettes, uncomplicated
CPT/HCPCS: 36415; 74176; 76705; 80053; 81003; 83605; 83690; 84702; 85025; 86140; 99283; A9270-GY

== ENCOUNTER 2017-02-08 13:41 | Emergency (ER) | payer OTHER ==
[2017-02-08] MEDS ORDERED: Azithromycin TAB* 250 MG PO ONE (16:05)
--- NOTE | 2017-02-08 16:07 | UC ---
Throat Pain/Nasal Janusz HPI - HPI Summary HPI Summary: 26 female presents with complaints of throat pain, nasal congestion, body aches , headache and ears feeling plugged bilaterally that has been ongoing for the past 2 days. Patient's symptoms have been getting worse. She has not taken any medication. Denies known fever however admits to chills. States she is prone to ear infections, denies known sick contacts. Denies cough. States throat is sore upon swallowing. Denies difficulty breathing, chest pain, nausea, vomiting and abdominal pain. States she did have diarrhea a day ago. Denies PMHx. - History of Current Complaint Hx Obtained From: Patient ?: No Onset/Duration: Sudden Onset, Lasting Days, Still Present, Worse Since Severity: Moderate Pain Intensity: 10 Pain Scale Used: 0-10 Numeric Cough: None Associated Signs & Symptoms: Positive: Dysphagia, Sinus Discomfort - nasal congestion, Fever - Epiglottits Risk Factors Epiglottis Risk Factors: Negative <Janette Page - Last Filed: 02/08/17 16:17> <Lisa Martin - Last Filed: 02/09/17 06:52> - History of Current Complaint Chief Complaint: UCGeneralIllness Stated Complaint: THROAT PAIN Time Seen by Provider: 02/08/17 14:49 - Allergies/Home Medications Allergies/Adverse Reactions: Allergies Allergy/AdvReac Type Severity Reaction Status Date / Time Aspirin Allergy Severe Altered Verified 02/08/17 13:57 Mental Status Penicillins [PCN] Allergy Severe Airway Verified 02/08/17 13:57 Obstruction Latex Allergy Hives Verified 02/08/17 13:57 Home Medications: Home Medications Budesonide/Formote 80/4.5(NF) [Symbicort 80/4.5 (NF)] 1 puff PO DAILY 02/08/17 [ History Confirmed 02/08/17] PMH/Surg Hx/FS Hx/Imm Hx - Additional Past Medical History Additional PMH: prone and hx of otitis media Cardiovascular History: Hypertension Other History Of: Negative For: HIV, Hepatitis B, Hepatitis C, Anticoagulant Therapy - Surgical History Surgical History: Yes Surgery Procedure, Year, and Place: "fluid removed from eardrums". Tonsillectomy. Adenoidectomy - Family History Known Family History: Positive: Cardiac Disease, Hypertension, Diabetes, Other - noncontributory Family History: NON CONTRIBUTORY - Social History Alcohol Use: Occasionally Substance Use Type: Marijuana Substance Use Comment - Amount & Last Used: occasional use Smoking Status (MU): Light Every Day Tobacco Smoker Type: Cigarettes Amount Used/How Often: 1/2 PPD Have You Smoked in the Last Year: No - Immunization History Most Recent Influenza Vaccination: fall 2015 Most Recent Tetanus Shot: unknown Most Recent Pneumonia Vaccination: never <Janette Page - Last Filed: 02/08/17 16:17> Review of Systems Constitutional: Chills Skin: Negative Eyes: Negative ENT: Sore Throat, Ear Ache, Nasal Discharge Respiratory: Negative Cardiovascular: Negative Gastrointestinal: Diarrhea Motor: Negative Neurovascular: Negative Musculoskeletal: Myalgia - body aches All Other Systems Reviewed And Are Negative: Yes <Janette Page - Last Filed: 02/08/17 16:17> Physical Exam Triage Information Reviewed: Yes Appearance: Well-Appearing, No Pain Distress, Well-Nourished Vital Signs: Initial Vital Signs Temp 98.4 F 02/08/17 13:51 Pulse 92 02/08/17 13:51 Resp 20 02/08/17 13:51 BP 136/87 02/08/17 13:51 Pulse Ox 98 02/08/17 13:51 Vital Signs Reviewed: Yes Eyes: Positive: Conjunctiva Clear ENT: Positive: Normal ENT inspection, Hearing grossly normal, Pharyngeal erythema, Nasal congestion, TM bulging, TM dull, TM red - left side with exudate. Negative: Tonsillar swelling - no tonsils visualized, Trismus, Muffled /hoarse voice Dental: Positive: Cervical Lymphadenopathy - bilateral Neck: Positive: Supple, Nontender Respiratory: Positive: Chest non-tender, Lungs clear, Normal breath sounds, No respiratory distress, No accessory muscle use. Negative: Wheezing Cardiovascular: Positive: RRR, No Murmur, Pulses Normal, Brisk Capillary Refill Bowel Sounds: Positive: Present Musculoskeletal: Positive: Strength Intact, ROM Intact Neurological: Positive: Alert, Muscle Tone Normal Psychological: Positive: Age Appropriate Behavior Skin Exam: Normal <Janette Page - Last Filed: 02/08/17 16:17> Vital Signs: Initial Vital Signs Temp 98.4 F 02/08/17 13:51 Pulse 92 02/08/17 13:51 Resp 20 02/08/17 13:51 BP 136/87 07/25/17 13:51 Pulse Ox 98 02/08/17 13:51 <Lisa Martin - Last Filed: 02/09/17 06:52> Throat Pain/Nasal Course/Dx - Course Course Of Treatment: given first dose of azithromycin while in office. will be treated for otitis media and strep. allergic to PCN. strep obtained and positive. told to take tylenol or ibuprofen for pain/fever. afebrile at this time. fluids and rest. chlroaseptic spray. follow up with pcp. Aware of worsening signs and symptoms to watch out for. - Differential Dx/Diagnosis Differential Diagnosis/HQI/PQRI: Influenza, Laryngitis, Mononucleosis, Otitis Media, Pharyngitis, Sinusitis, Tonsillitis, URI Provider Diagnoses: otitis media- left ear, streptococcal pharyngitis <Janette Page - Last Filed: 02/08/17 16:17> Discharge <Janette Page - Last Filed: 02/08/17 16:17> <Lisa Martin - Last Filed: 02/09/17 06:52> - Discharge Plan Condition: Stable Disposition: HOME Prescriptions: Acetaminophen TAB* [Tylenol TAB*] 650 mg PO Q6H PRN #20 tab PRN Reason: Pain Azithromycin TAB* [Zithromax TAB (Z-MIGUEL) 250 mg #6 tabs] 250 mg PO DAILY #4 tab Patient Education Materials: Strep Throat (ED), Otitis Media (ED) Referrals: Yonatan Watson, AGENCY DIRECTOR [Primary Care Provider] - Additional Instructions: Take prescribed medication as directed starting tomorrow. Follow up with PCP. Drink plenty of fluids and get plenty of rest. If symptoms worsen or do not improve please seek medical attention. Do not submerge ear under water. Keep clean and dry. Tylenol for pain and fever. Attestation Statement Provider Attestation: I was available for consult. This patient was seen by the EMMETT. The patient was not presented to, seen by, or examined by me. -Taitana <Lisa Martin - Last Filed: 02/09/17 06:52>
[2017-02-08 16:26] VITALS: BP 166/98
== END 2017-02-08 16:17 | disposition home or self-care (01) ==
LOC: UCEAST 13:41
DX: H66.92 Otitis media, unspecified, left ear (principal); J02.0 Streptococcal pharyngitis; Z72.0 Tobacco use; I10 Essential (primary) hypertension
CPT/HCPCS: 87651; 99201; 99212; A9270-GY; G0463

== ENCOUNTER 2018-05-24 14:40 | Emergency (ER) | payer SELFPAY ==
[2018-05-24 16:50] LABS: Urine Appearance Cloudy; Urine Blood Negative (Negative); Urine Color Yellow; Urine Ketones Negative (Negative); Urine Protein Negative (Negative); Urine Specific Gravity 1.018 (1.010-1.030); Urine Urobilinogen Negative (Negative)
[2018-05-24] MEDS ORDERED: Ibuprofen TAB* 800 MG PO ONE (17:45)
[2018-05-24 18:00] VITALS: BP 131/95
--- NOTE | 2018-05-24 18:07 | ED ---
Lower Extremity - HPI Summary HPI Summary: Pt. is a 27 y.o female who presents to the ER for a right ankle injury and lower back pain. Pt. states that she twisted are right ankle a few days ago and has been having pain and swelling since. Pt. states she broke same ankle a few years ago. Pt. also notes lower back pain and is concerned she may have a UTI. Denies fever, chills, N/V. Sxs mild in severity. Walking make sxs worse. Rest makes sxs better. No significant past medical hx. Pt. states she does not have a regular menstrual cycle and states she could be . - History of Current Complaint Chief Complaint: EDBackInjuryPain Stated Complaint: RT ANKLE INJURY/ABD PAIN Time Seen by Provider: 05/24/18 15:21 Hx Obtained From: Patient Hx Last Menstrual Period: March 18, 2016 Pain Intensity: 10 Pain Scale Used: 0-10 Numeric - Allergies/Home Medications Allergies/Adverse Reactions: Allergies Allergy/AdvReac Type Severity Reaction Status Date / Time MS Aspirin [Aspirin] Allergy Severe Altered Verified 02/08/17 13:57 Mental Status MS Penicillins [PCN] Allergy Severe Airway Verified 02/08/17 13:57 Obstruction MS Latex [Latex] Allergy Hives Verified 02/08/17 13:57 PMH/Surg Hx/FS Hx/Imm Hx Previously Healthy: Yes Endocrine/Hematology History: Denies: Hx Anticoagulant Therapy, Hx Diabetes, Hx Thyroid Disease Cardiovascular History: Reports: Hx Hypertension - on med; does not know which one Denies: Hx Congestive Heart Failure, Hx Deep Vein Thrombosis, Hx Myocardial Infarction, Hx Pacemaker/ICD Respiratory History: Reports: Hx Asthma Denies: Hx Chronic Obstructive Pulmonary Disease (COPD), Hx Lung Cancer, Hx Pneumonia, Hx Pulmonary Embolism GI History: Denies: Hx Gall Bladder Disease, Hx Gastrointestinal Bleed, Hx Ulcer, Hx Urosepsis History: Denies: Hx Kidney Stones, Hx Renal Disease Neurological History: Reports: Hx Migraine - "I get them quite frequently." But takes no Rx. Denies: Hx Dementia, Hx Seizures, Hx Transient Ischemic Attacks (TIA) Psychiatric History: Reports: Hx Anxiety, Hx Depression, Hx Substance Abuse Denies: Hx Schizophrenia, Hx Bipolar Disorder - Surgical History Surgery Procedure, Year, and Place: "fluid removed from eardrums". Tonsillectomy. Adenoidectomy Infectious Disease History: No Infectious Disease History: Reports: Hx of Known/Suspected MRSA - 2008 Denies: Hx Clostridium Difficile, Hx Hepatitis, Hx Human Immunodeficiency Virus (HIV), Hx Shingles, Hx Tuberculosis, Hx Known/Suspected VRE, Hx Known/ Suspected VRSA, History Other Infectious Disease, Traveled Outside the [place] in Last 30 Days - Family History Known Family History: Positive: Cardiac Disease, Hypertension, Diabetes, Other - noncontributory Family History: NON CONTRIBUTORY - Social History Occupation: Employed Full-time Lives: With Family Alcohol Use: Occasionally Hx Substance Use: Yes Substance Use Type: Reports: Marijuana Substance Use Comment - Amount & Last Used: occasional use Hx Tobacco Use: Yes Smoking Status (MU): Light Every Day Tobacco Smoker Type: Cigarettes Amount Used/How Often: 1/2 PPD Have You Smoked in the Last Year: No Review of Systems Constitutional: Negative Negative: Fever, Chills Gastrointestinal: Negative Negative: Abdominal Pain, Vomiting, Diarrhea, Nausea Positive: other - low back pain. Negative: dysuria, discharge, frequency, hematuria Positive: Other - right ankle pain All Other Systems Reviewed And Are Negative: Yes Physical Exam Triage Information Reviewed: Yes Vital Signs On Initial Exam: Initial Vitals Temp Pulse Resp BP Pulse Ox 97.2 F 88 16 122/70 98 05/24/18 14:43 05/24/18 14:43 05/24/18 14:43 05/24/18 14:43 05/24/18 14:43 Vital Signs Reviewed: Yes Appearance: Positive: Well-Appearing - Pt. sitting on bed in NAD. Skin: Positive: Warm, Dry Head/Face: Positive: Normal Head/Face Inspection Eyes: Positive: Normal, EOMI Neck: Positive: Supple Respiratory/Lung Sounds: Positive: Clear to Auscultation, Breath Sounds Present Cardiovascular: Positive: Normal, RRR Abdomen Description: Positive: Nontender, Soft Musculoskeletal: Positive: Other - Mild edema and pain over the right lateral malleolus. No foot pain or pain to the base of the 5th metatarsal. Mild anterior knee pain. No calf swelling or pain. Mild pain on palpation over lower back and right flank. Neurological: Positive: Normal, CN Intact II-III Psychiatric: Positive: Affect/Mood Appropriate Diagnostics - Vital Signs Vital Signs Temp Pulse Resp BP Pulse Ox 05/24/18 17:59 97.8 F 78 17 131/95 100 05/24/18 14:43 97.2 F 88 16 122/70 98 - Laboratory Lab Results: Lab Results 05/24/18 05/24/18 Range/Units 16:01 16:20 Beta HCG, Quant < 0.60 mIU/mL Urine Color Yellow Urine Appearance Cloudy Urine pH 6.0 (5-9) Ur Specific [place] 1.018 (1.010-1.030) Urine Protein Negative (Negative) Urine Ketones Negative (Negative) Urine Blood Negative (Negative) Urine Nitrate Negative (Negative) Urine Bilirubin Negative (Negative) Urine Urobilinogen Negative (Negative) Ur Leukocyte Esterase Negative (Negative) Urine Glucose Negative (Negative) Lab Statement: Any lab studies that have been ordered have been reviewed, and results considered in the medical decision making process. Lower Extremity Course/Dx - Course Course Of Treatment: Pt. presenting for ankle injury and low back pain with concern for UTI. She is afebrile and well appearing. U/A is negative for infection or blood. Negative . Ankle xray is neg for acute findings, reading per radiology. Tono wrap placed for comfort. To ice and elevate. NSAIDS for pain as directed. To f.u with PCP if sxs persist. To return to ER if sxs change or worsen. - Diagnoses Differential Diagnosis/HQI/PQRI: Positive: Arthritis, Contusion, Fracture ( Closed), Sprain, Strain Provider Diagnoses: Ankle sprain, Back pain Discharge - Sign-Out/Discharge Documenting (check all that apply): Patient Departure - Discharge Plan Condition: Good Disposition: HOME Patient Education Materials: Ankle Sprain (ED), Low Back Strain (ED) Forms: *Work Release Referrals: Yonatan Watson NP [Primary Care Provider] - Additional Instructions: Schedule a follow up appointment with your PCP Ice and elevate Tylenol or Motrin for pain as directed Return to ER if symptoms change or worsen - Billing Disposition and Condition Condition: GOOD Disposition: Home
== END 2018-05-24 17:59 | disposition home or self-care (01) ==
LOC: ED 14:40
DX: S93.401A Sprain of unspecified ligament of right ankle, initial encounter (principal); M54.5 Low back pain; F17.210 Nicotine dependence, cigarettes, uncomplicated; I10 Essential (primary) hypertension; X50.0XXA Overexertion from strenuous movement or load, initial encounter; Y92.9 Unspecified place or not applicable
CPT/HCPCS: 36415; 81003; 84702; 99282; A9270-GY

== ENCOUNTER 2018-06-29 21:05 | Emergency (ER) | payer SELFPAY ==
[2018-06-29 21:21] VITALS: BP 148/85
[2018-06-29] MEDS ORDERED: predniSONE TAB* 20 MG PO ONE (21:30)
[2018-06-29] MEDS ORDERED: Albuterol 2.5 MG/3 ML NEB.SOL* (0.083%) INH ONE (21:30)
--- NOTE | 2018-06-29 21:41 | ED ---
Respiratory - HPI Summary HPI Summary: 27 yr old female with dry cough for over a day. The patient has been rather SOB today and has pain in the right side of her chest that began late this afternoon, and is sharp. She had a syncopal episode earlier at home. She has a history of asthma and smoking. She is not on any medications presently. She has had hot and cold feeling. She has not felt confused. - History of Current Complaint Chief Complaint: UCRespiratory Stated Complaint: COUGH,CONGESTION Pain Intensity: 0 - Allergy/Home Medications Allergies/Adverse Reactions: Allergies Allergy/AdvReac Type Severity Reaction Status Date / Time aspirin Allergy Altered Verified 06/29/18 21:16 Mental Status latex Allergy Hives Verified 06/29/18 21:16 Penicillins Allergy Airway Verified 06/29/18 21:16 Obstruction Home Medications: Home Medications NK [No Home Medications Reported] 06/29/18 [History Confirmed 06/29/18] PMH/Surg Hx/FS Hx/Imm Hx Endocrine/Hematology History: Denies: Hx Anticoagulant Therapy, Hx Diabetes, Hx Thyroid Disease Cardiovascular History: Reports: Hx Hypertension - NOT ON MEDS Denies: Hx Congestive Heart Failure, Hx Deep Vein Thrombosis, Hx Myocardial Infarction, Hx Pacemaker/ICD Respiratory History: Reports: Hx Asthma Denies: Hx Chronic Obstructive Pulmonary Disease (COPD), Hx Lung Cancer, Hx Pneumonia, Hx Pulmonary Embolism GI History: Denies: Hx Gall Bladder Disease, Hx Gastrointestinal Bleed, Hx Ulcer, Hx Urosepsis History: Denies: Hx Kidney Stones, Hx Renal Disease Neurological History: Reports: Hx Migraine - "I get them quite frequently." But takes no Rx. Denies: Hx Dementia, Hx Seizures, Hx Transient Ischemic Attacks (TIA) Psychiatric History: Reports: Hx Anxiety, Hx Depression, Hx Substance Abuse Denies: Hx Schizophrenia, Hx Bipolar Disorder - Surgical History Surgery Procedure, Year, and Place: "fluid removed from eardrums". Tonsillectomy. 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 Denies: Hx Clostridium Difficile, Hx Hepatitis, Hx Human Immunodeficiency Virus (HIV), Hx Shingles, Hx Tuberculosis, Hx Known/Suspected VRE, Hx Known/ Suspected VRSA, History Other Infectious Disease, Traveled Outside the [place] in Last 30 Days - Family History Known Family History: Positive: Cardiac Disease, Hypertension, Diabetes, Other - noncontributory Family History: NON CONTRIBUTORY - Social History Alcohol Use: None Hx Substance Use: Yes Substance Use Type: Reports: None Substance Use Comment - Amount & Last Used: occasional use Hx Tobacco Use: Yes Smoking Status (MU): Light Every Day Tobacco Smoker Type: Cigarettes Amount Used/How Often: <1/2 PPD Have You Smoked in the Last Year: No Review of Systems Positive: Chills, Fatigue Positive: Chest Pain, Other - syncope Positive: Shortness Of Breath All Other Systems Reviewed And Are Negative: Yes Physical Exam Triage Information Reviewed: Yes Vital Signs On Initial Exam: Initial Vitals Temp Pulse Resp BP Pulse Ox 98.2 F 109 18 148/85 99 06/29/18 21:17 06/29/18 21:17 06/29/18 21:17 06/29/18 21:17 06/29/18 21:17 Vital Signs Reviewed: Yes Appearance: Positive: Ill-Appearing - SOB, Obese Skin: Positive: Warm, Skin Color Reflects Adequate Perfusion Eyes: Positive: EOMI ENT: Positive: Pharynx normal. Negative: Nasal drainage Neck: Positive: Nontender Respiratory/Lung Sounds: Positive: Breath Sounds Present, Other - she has tachypnea. Negative: Stridor, Wheezes Cardiovascular: Positive: Tachycardia. Negative: Murmur Abdomen Description: Positive: Other: - obese and non tender Musculoskeletal: Positive: Strength/ROM Intact Neurological: Positive: Sensory/Motor Intact, Alert, Oriented to Person Place, Time, CN Intact II-III, Normal Gait Psychiatric: Positive: Normal - Nathalie Coma Scale Best Eye Response: 4 - Spontaneous Best Motor Response: 6 - Obeys Commands Best Verbal Response: 5 - Oriented Coma Scale Total: 15 Diagnostics - Vital Signs Vital Signs Temp Pulse Resp BP Pulse Ox 06/29/18 21:17 98.2 F 109 18 148/85 99 - Laboratory Lab Statement: Any lab studies that have been ordered have been reviewed, and results considered in the medical decision making process. - EKG 06/29/18 Cardiac Rate: Tachycardia - 109 EKG Rhythm: Sinus Tachycardia ST Segment: Normal Ectopy: None Summary of EKG Findings: no STEMI Disposition - Course Course Of Treatment: 27 yr old with SOB, pleuritic chest pain, syncope. She has refused transfer to ER by amubulance. One neb, and prednisone given. She signed AMA. - Diagnoses Provider Diagnoses: Shortness of breath, Syncope, Chest pain, Hypertension Discharge - Sign-Out/Discharge Documenting (check all that apply): Patient Departure All imaging exams completed and their final reports reviewed: No Studies - Discharge Plan Condition: Fair Disposition: AGAINST MEDICAL ADVICE Referrals: Yonatan Watson NP [Primary Care Provider] - - Billing Disposition and Condition Condition: FAIR Disposition: Against Medical Advice
== END 2018-06-29 21:56 | disposition left against medical advice (07) ==
LOC: UCCORT 21:05
DX: R55 Syncope and collapse (principal); R06.02 Shortness of breath; R07.9 Chest pain, unspecified; I10 Essential (primary) hypertension; Z88.0 Allergy status to penicillin; Z88.8 Allergy status to other drugs, medicaments and biological substances; F17.210 Nicotine dependence, cigarettes, uncomplicated
CPT/HCPCS: 93005; 99212; 99213; G0463; J7512

== ENCOUNTER 2018-08-11 13:48 | Emergency (ER) | payer OTHER ==
--- OUTSIDE RECORDS SUMMARY | 2018-08-11 14:00 | XMS REPORT | Continuity of Care Document ---
:1990 External Reference #:[id number] Author Name Quintin Sandoval MD Address [address] [place] [address] Care Team Providers Name Role Phone Tova Waite NP Care Team Information Mid Level Practitioner Unavailable Payers Type Date Identification Numbers Payment Provider Subscriber Policy Number: [id number] [facility] Denae Hernandez PayID: [id number] [address] [place] [address] Expires: 2018 Policy Number: [id number] Medicaid [place] Denae Campuzano PayID: [id number] [address] [place] [address] Advance Directives Description No Information Available Problems Date Description Provider Status Onset: 07/25/2018 Uncomplicated severe persistent Quintin Sandoval MD Active asthma Onset: 07/25/2018 Allergic rhinitis Quintin Sandoval MD Active Onset: 07/25/2018 Allergic rhinitis due to pollen Quintin Sandoval MD Active Family History Description No Information Available Social History Type Date Description Comments Sex Unknown Smoke-Free Home is smoke-free Pets several cats 5 Pets 1 dog Tobacco Use Start: Unknown Light tobacco smoker (10 or fewer cigarettes/day) Smoking Status Reviewed: 07/25/18 Light tobacco smoker (10 or fewer cigarettes/day) Allergies, Adverse Reactions, Alerts Date Description Reaction Status Severity Comments 07/25/2018 Latex Active 07/25/2018 Penicillin Active 07/25/2018 Aspirin Active Medications Medication Date Status Form Strength Qnty SIG Indications Ordering Provider Flonase 07/25/ Suspension 50mcg/Act 9.900m 2 puffs J30.1 [facility] 2019 l each Elizabeth Sandoval MD Relief nostril every day Zyrtec 07/25/ Active Tablets 10mg 30tabs one J30.1 [facility] 2019 tablet by Elizabeth Sandoval MD mouth every day as needed Breo Ellipta 07/25/ Active Aerosol 200-25mcg/ 60unit inhale J30.1 opher 2019 Inh s one puff Elizabeth Sandoval MD once a day Proair HFA 07/25/ Active Aerosol 108(90Base 8.500g 2 puffs J30.1 [facility] 2019 ) mcg/Act m every 4 Elizabeth Sandoval MD as needed Proair HFA / Active Aerosol 108(90Base 2 puffs Unknown 0000 ) mcg/Act every 4 as needed Advair / Hx Aerosol 500-50mcg/ 1 puff Unknown Diskus 0000 - Dose twice a 2019 Immunizations Description No Information Available Vital Signs Date Vital Result Comment 07/25/2018 11:11am BP Systolic 138 mmHg BP Diastolic 85 mmHg Height 65 inches 5'5" Weight 300.00 lb BMI (Body Mass Index) 49.9 kg/m2 Heart Rate 86 /min Respiratory Rate 18 /min O2 % BldC Oximetry 96 % Results Test Date Facility Test Result H/L Range Note .CBC Auto Diff 07/25/2018 [facility]Other <pending> [address] [facility] [place] [address] [phone] Laboratory test 07/25/2018 [facility] Total <pending> finding [address] [place], [place] [id number] [phone] Order 07/25/2018 [facility] Inhaler <pending> Training-Patient Demonstrates Competency Nitric Oxide <pending> PFT Supplies <pending> PFT With Bronchodilator <pending> Skin Test Seasonal and Environmental <pending> Procedures Date Code Description Status 07/25/2018 79802 Nitric Oxide Gas Determination Completed 07/25/2018 20571 Allergy Tests Percutaneous W/ Allergenic Extracts Completed 07/25/2018 41366 Demonstration/Eval,Of Patient Utilization Of Completed Aerosol,Nebulizer 07/25/2018 77971 Bronchodilation Responsiveness Spirometry Pre/Post Completed Bronchodil Adm Encounters Description No Information Available Plan of Treatment 07/25/2018 - Quintin Sandoval MDJ30.1 Allergic rhinitis due to pollenNew Medication:Flonase Allergy Relief 50 mcg/Act - 2 puffs each nostril every dayZyrtec Allergy 10 mg - one tablet by mouth every day as neededBreo Ellipta 200-25 mcg/Inh - inhale one puff once a dayProair HFA 108(90 Base) mcg/Act - 2 puffs every 4 as bsproxG36.89 Other allergic duiluagwQ11.50 Severe persistent asthma, uncomplicated
--- OUTSIDE RECORDS SUMMARY | 2018-08-11 14:00 | XMS REPORT | Continuity of Care Document ---
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 Payers Type Date Identification Numbers Payment Provider Subscriber Policy Number: [id number] [facility] Denae Hernandez PayID: [id number] [address] [place] [address] Expires: 2018 Policy Number: [id number] Medicaid [place] Denae Campuzano PayID: [id number] [address] [place] [address] Advance Directives Description No Information Available Problems Description No Information Family History Description No Information Available Social History Type Date Description Comments Sex Unknown Smoke-Free Home is smoke-free Tobacco Use Start: Unknown Light tobacco smoker (10 or fewer cigarettes/day) Allergies, Adverse Reactions, Alerts Date Description Reaction Status Severity Comments 07/25/2018 Latex Active 07/25/2018 Penicillin Active 07/25/2018 Aspirin Active Medications Medication Date Status Form Strength Qnty SIG Indications Ordering Provider Proair HFA Active Aerosol 108(90Base) 2 puffs Unknown 00 mcg/Act every 4 as needed Advair Diskus Active Aerosol 500-50mcg/D 1 puff Unknown 00 ose twice a day Immunizations Description No Information Available Vital Signs Date Vital Result Comment 07/25/2018 11:11am BP Systolic 138 mmHg BP Diastolic 85 mmHg Height 65 inches 5'5" Weight 300.00 lb BMI (Body Mass Index) 49.9 kg/m2 Heart Rate 86 /min Respiratory Rate 18 /min O2 % BldC Oximetry 96 % Results Description No Information Available Procedures Description No Information Available Encounters Description No Information Available Plan of Treatment No Information Available
[2018-08-11 14:09] VITALS: BP 153/89
[2018-08-11] MEDS ORDERED: Ondansetron ODT TAB* 4 MG PO ONE (14:29)
--- NOTE | 2018-08-11 14:31 | UC ---
Nausea/Vomiting/Diarrhea HPI - HPI Summary HPI Summary: 27 year old woman comes in with a chief complaint of nausea vomiting and abdominal pain. She started with mid abdominal pain and nausea and vomiting 2- 3 days ago. No fevers or chills. The pain is in the mid abdomen and wraps around the left side and right side. It's worse with vomiting. Better with rest. Also had a couple of episodes of diarrhea. Has not seen any blood in her diarrhea or her emesis. No abdominal surgery history. No problems with urination. Does have a history of GERD and vomiting does make her GERD symptoms worse. Also having some upper respiratory tract infection symptoms for the last couple of days. - History of Current Complaint Chief Complaint: UCRespiratory Stated Complaint: VOMITING,STOMACH PAIN 3 DAYS Time Seen by Provider: 08/11/18 14:16 Hx Last Menstrual Period: 07/11/18 Pain Intensity: 8 - Allergies/Home Medications Allergies/Adverse Reactions: Allergies Allergy/AdvReac Type Severity Reaction Status Date / Time aspirin Allergy Altered Verified 08/11/18 14:09 Mental Status latex Allergy Hives Verified 08/11/18 14:09 Penicillins Allergy Airway Verified 08/11/18 14:09 Obstruction Home Medications: Home Medications Albuterol HFA INHALER* [Ventolin HFA Inhaler*] 1 puff INH Q4H PRN 08/11/18 [ History Confirmed 08/11/18] Cetirizine HCl [Zyrtec] 10 mg PO DAILY 08/11/18 [History Confirmed 08/11/18] Fluticasone-Salmeterol 100-50* [Advair Diskus 100-50*] 1 puff INH BID 08/11/18 [ History Confirmed 08/11/18] Mydol 1 tab PO ONCE PRN 08/11/18 [History] PMH/Surg Hx/FS Hx/Imm Hx Previously Healthy: Yes Respiratory History: Asthma GI/ History: Gastroesophageal Reflux Other History Of: Negative For: HIV, Hepatitis B, Hepatitis C, Anticoagulant Therapy - Surgical History Surgical History: Yes Surgery Procedure, Year, and Place: "fluid removed from eardrums". Tonsillectomy. Adenoidectomy - Family History Known Family History: Positive: Cardiac Disease, Hypertension, Diabetes, Other - noncontributory Family History: NON CONTRIBUTORY - Social History Alcohol Use: None Substance Use Type: None Substance Use Comment - Amount & Last Used: occasional use Smoking Status (MU): Light Every Day Tobacco Smoker Type: Cigarettes Amount Used/How Often: <1/2 PPD Have You Smoked in the Last Year: No Household Exposure Type: Cigarettes - Immunization History Most Recent Influenza Vaccination: fall 2015 Most Recent Tetanus Shot: unknown Most Recent Pneumonia Vaccination: never Review of Systems All Other Systems Reviewed And Are Negative: Yes Constitutional: Positive: Negative Skin: Positive: Negative Eyes: Positive: Negative ENT: Positive: Nasal Discharge Respiratory: Positive: Negative Cardiovascular: Positive: Negative Gastrointestinal: Positive: Abdominal Pain, Vomiting, Diarrhea, Nausea Genitourinary: Positive: Negative Motor: Positive: Negative Neurovascular: Positive: Negative Musculoskeletal: Positive: Negative Neurological: Positive: Negative Psychological: Positive: Negative Is Patient Immunocompromised?: No Physical Exam Triage Information Reviewed: Yes Appearance: Well-Appearing, No Pain Distress, Well-Nourished Vital Signs: Initial Vital Signs Temp 96.9 F 08/11/18 14:02 Pulse 76 08/11/18 14:02 Resp 18 08/11/18 14:02 BP 153/89 08/11/18 14:02 Pulse Ox 99 08/11/18 14:02 Vital Signs Reviewed: Yes Eye Exam: Normal Eyes: Positive: Conjunctiva Clear ENT: Positive: Pharynx normal, Nasal drainage, Other - B/L CERUMEN IMPACTION Neck exam: Normal Neck: Positive: Supple Respiratory: Positive: Lungs clear, Normal breath sounds, No respiratory distress Cardiovascular: Positive: RRR Abdomen Description: Positive: Soft, Other: - MILD TENDERNESS TO PALPATION MID ABDOMEN, NO REBOUND. NO RLQ TENDERNESS. NO MASS PALPATED. Negative: Distended, Guarding Musculoskeletal Exam: Normal Musculoskeletal: Positive: Strength Intact Neurological Exam: Normal Neurological: Positive: Alert, Muscle Tone Normal Psychological Exam: Normal Psychological: Positive: Age Appropriate Behavior Skin Exam: Normal Naus/Vom/Diarrhea Course/Dx - Course Course Of Treatment: By the patient's history is difficult to determine if the nausea and vomiting or the abdominal pain started first. On exam and by history there is no evidence of bowel obstruction. Right lower quadrant is nontender. Right upper quadrant has mild tenderness but the primary area of tenderness is mid abdomen. The pain radiates around both sides left and right. On examination the patient's in no acute distress. We discussed going to the emergency department for further evaluation and treatment of her abdominal pain. At this time we will treat with Zofran. We discussed if he does not improve or if she worsens she get evaluated in the emergency department. - Differential Dx/Diagnosis Provider Diagnosis: Abdominal pain, Nausea, vomiting and diarrhea Condition At Discharge: Stable Discharge - Sign-Out/Discharge Documenting (check all that apply): Patient Departure All imaging exams completed and their final reports reviewed: No Studies - Discharge Plan Condition: Stable Disposition: HOME Prescriptions: Ondansetron ODT TAB* [Zofran 4 MG Odt TAB*] 4 mg PO Q6H PRN #10 tab.odt PRN Reason: Nausea Patient Education Materials: Acute Nausea and Vomiting (ED), Abdominal Pain (ED ) Forms: *Work Release Referrals: [facility] [Outside] Additional Instructions: FOLLOW UP WITH YOUR DOCTOR IF NOT COMPLETELY IMPROVED. GO TO THE EMERGENCY DEPARTMENT FOR ANY WORSENING OF YOUR CONDITION; PAIN, DEHYDRATION, FEVER, YOU FEEL ILL, BLOOD IN YOUR VOMIT OR STOOL OR QUESTIONS OR CONCERNS. - Billing Disposition and Condition Condition: STABLE Disposition: Home
== END 2018-08-11 14:36 | disposition home or self-care (01) ==
LOC: UCCORT 13:48
DX: R10.9 Unspecified abdominal pain (principal); R11.2 Nausea with vomiting, unspecified; R19.7 Diarrhea, unspecified; R10.811 Right upper quadrant abdominal tenderness; J45.909 Unspecified asthma, uncomplicated; K21.9 Gastro-esophageal reflux disease without esophagitis; R09.89 Other specified symptoms and signs involving the circulatory and respiratory systems; H61.23 Impacted cerumen, bilateral; F17.210 Nicotine dependence, cigarettes, uncomplicated; Z88.6 Allergy status to analgesic agent; Z88.0 Allergy status to penicillin; Z91.040 Latex allergy status; Z79.899 Other long term (current) drug therapy
CPT/HCPCS: 99212; A9270-GY; G0463

== ENCOUNTER 2018-11-12 12:46 | Emergency (ER) | payer MEDICAID, OTHER ==
[2018-11-12 13:30] VITALS: BP 152/88
--- NOTE | 2018-11-12 13:31 | UC ---
Ear Complaint HPI - HPI Summary HPI Summary: 28 y/o female presents to the urgent care c/o right ear pain w/ decrease hearing and pressure for the past week. Pt reports she has Hx of ear infection w/ B/L ear tube placement as a child by Dr Helms. Pt states left ear pain started yesterday. Pt is allergic to PCN and ASA. Pain is 9/10 intermittent w/o any radiation. She has been taking Tylenol PO to alleviate symptoms. last dose taken was around 0900AM. pt denies dizziness, fever, STANTON, URi, SOB, chest pain, abdominal pain, N/V/d. - History of Current Complaint Chief Complaint: UCEar Stated Complaint: RIGHT EAR PAIN Time Seen by Provider: 11/12/18 13:26 Hx Obtained From: Patient Hx Last Menstrual Period: 10/01/18 ?: No Onset/Duration: Gradual Onset, Lasting Days - 1 week, Still Present, Worse Since - today Severity Initially: Mild Severity Currently: Moderate Pain Intensity: 9 - Rt ear pain Pain Scale Used: 0-10 Numeric Aggravating Factors: Other - touch Rt ear Alleviating Factors: OTC Meds - tylenol PO, last taken was at 0900AM Associated Signs/Symptoms: Positive: Hearing Loss Related History: T & A - as a child - Allergies/Home Medications Allergies/Adverse Reactions: Allergies Allergy/AdvReac Type Severity Reaction Status Date / Time aspirin Allergy Altered Verified 11/12/18 13:30 Mental Status latex Allergy Hives Verified 11/12/18 13:30 Penicillins Allergy Airway Verified 11/12/18 13:30 Obstruction Home Medications: Home Medications ALPRAZolam [Xanax] 2 mg PO DAILY 11/12/18 [History Confirmed 11/12/18] Acetaminophen [Tylenol Extra Strength] 2,500 mg PO Q4HR PRN 11/12/18 [History Confirmed 11/12/18] Fluticasone NASAL SPRAY 50MCG* [Flonase NASAL SPRAY 50MCG*] 2 spray BOTH NARES DAILY 11/12/18 [History Confirmed 11/12/18] Fluticasone/Vilanterol MDI(NF) [Breo Ellipta MDI 100/25(NF)] 1 puff INH DAILY [History Confirmed 11/12/18] Omeprazole (Nf) [Prilosec (NF)] 40 mg PO DAILY 11/12/18 [History Confirmed 11/12] PMH/Surg Hx/FS Hx/Imm Hx Previously Healthy: Yes Respiratory History: Asthma GI/ History: Gastroesophageal Reflux Psychological History: Anxiety, Depression Other History Of: Negative For: HIV, Hepatitis B, Hepatitis C, Anticoagulant Therapy - Surgical History Surgical History: Yes Surgery Procedure, Year, and Place: "fluid removed from eardrums". Tonsillectomy. Adenoidectomy - Family History Known Family History: Positive: Cardiac Disease, Hypertension, Diabetes, Other - noncontributory Family History: NON CONTRIBUTORY - Social History Occupation: Employed Full-time Lives: With Family Alcohol Use: None Substance Use Type: None Substance Use Comment - Amount & Last Used: occasional use Smoking Status (MU): Light Every Day Tobacco Smoker Type: Cigarettes Amount Used/How Often: <1/2 PPD Have You Smoked in the Last Year: No Household Exposure Type: Cigarettes - Immunization History Most Recent Influenza Vaccination: fall 2015 Most Recent Tetanus Shot: unknown Most Recent Pneumonia Vaccination: never Review of Systems All Other Systems Reviewed And Are Negative: Yes Constitutional: Positive: Negative Skin: Positive: Negative Eyes: Positive: Negative ENT: Positive: Ear Ache - B/L ear pain RT>LF, Other - decrease hearing Respiratory: Positive: Negative Cardiovascular: Positive: Negative Gastrointestinal: Positive: Negative Genitourinary: Positive: Negative Motor: Positive: Negative Neurovascular: Positive: Negative Musculoskeletal: Positive: Negative Neurological: Positive: Negative Psychological: Positive: Negative Is Patient Immunocompromised?: No Physical Exam - Summary Physical Exam Summary: Vital signs: reviewed General: well developed, well nourished obese female sitting in the examining table w/o any apparent distress Skin: [place], warm and dry, no evidence of atopic dermatitis, psoriasis, seborrhea. HEENT: -Head: atraumatic, non tender; no scalp dermatitis. -Eyes: sclera and conjunctiva clear, PERRLA, EOMI -Ears: no pre- or postauricular lymphadenopathy or erythema; RT external ear canal impacted w/ cerumen unable to visualize TM. LF external ear canal clear and LF TM injected w/ erythema and mild yellowish drainage. No perforation. -Nose/Face: erythematous and edematous nasal mucosa with clear rhinorrhea, no frontal or maxillary sinus tender to palpation. -Mouth/Throat: Mucous membrane moist, posterior pharynx clear, no erythema or exudates. Neck: supple, FROM, nontender, no lymphadenopathy, no meningismus. Chest: Clear to auscultation, normal breath sounds Abd: soft, Bowel sounds active, Nontender. Back: no spinal or CVAT Neuro: A&O x4, GCS 15, no focal neuro deficits, normal behavior for age. Triage Information Reviewed: Yes Vital Signs: Initial Vital Signs Temp 98.2 F 11/12/18 13:22 Pulse 75 11/12/18 13:22 Resp 16 11/12/18 13:22 BP 152/88 11/12/18 13:22 Pulse Ox 98 11/12/18 13:22 Ear Complaint Course/Dx - Course Course Of Treatment: 28 y/o female presents to the urgent care c/o right ear pain w/ decrease hearing and pressure for the past week. Pt reports she has Hx of ear infection w/ B/L ear tube placement as a child by Dr Helms. Pt states left ear pain started yesterday. Pt is allergic to PCN and ASA. Pain is 9/10 intermittent w/o any radiation. She has been taking Tylenol PO to alleviate symptoms. last dose taken was around 0900AM. pt denies dizziness, fever, STANTON, URi, SOB, chest pain, abdominal pain, N/V/d. Hx obtained. Pt w/ R external ear canal impacted w/ cerumen unable to visualize Rt TM and LF otitis media on examination. RT ear irrigation ordered and performed by the nurse. Pt tolerated well procedure and RT TM injected w/ erythema and yellowish drainage. Pregnanacy test: negative. Pt Rx Doxycycline PO. Pt requext Hope for pain. I-stop # [id number] Rx Hope 15tabs on 08/29/2018. PT Advised to continue w/ Tylenol to control pain and if symptoms do not improve or worsen to f/u with PCP or ENT Dr Helms in 3 days for further management. Pt's BP is elevated today advised to decrease salt in diet, monitor BP and f/u with PCP for further management. Pt understood and agreed with D/C instructions. - Differential Dx/Diagnosis Differential Diagnosis/HQI/PQRI: Cerumen Impaction, Otitis Externa, Otitis Media , Perforated TM Provider Diagnosis: Bilateral otitis media, Right ear impacted cerumen, Elevated BP without diagnosis of hypertension Discharge - Sign-Out/Discharge Documenting (check all that apply): Patient Departure - d/c home All imaging exams completed and their final reports reviewed: No Studies - Discharge Plan Condition: Stable Disposition: HOME Prescriptions: DOXYcycline CAP(*) [DOXYcycline 100MG CAP(*)] 100 mg PO BID #20 cap Patient Education Materials: Ear Infection (ED), Low-Sodium Diet (ED) Referrals: Vamshi Helms MD [Medical Doctor] - 3 Days Yonatan Watson NP [Primary Care Provider] - 3 Days Additional Instructions: 1- Please take the full course of the antibiotic to avoid resistance. Take yogurt w/ probiotics or Culturelle to protect your GI system 2-Please take Tylenol PO q6-8hrs prn as instructed after meals to alleviate pain and swelling. Increase fluid intake, eat well, rest and avoid strenuous exercise 3-If symptoms do not improve or worsen please return to the urgent care or f/u with your PCP or ENT DR Helms in 3 days for further evaluation and treatment. 4- test was negative 5-Your BP is elevated today. please decrease salt in your diet, monitor BP and if it continues to be elevated please f/u with your PCP for further management. - Billing Disposition and Condition Condition: STABLE Disposition: Home
[2018-11-12] MEDS ORDERED: Acetaminophen TAB* 325 MG PO ONE (13:42)
== END 2018-11-12 14:19 | disposition home or self-care (01) ==
LOC: UCCORT 12:46
DX: H66.93 Otitis media, unspecified, bilateral (principal); H61.21 Impacted cerumen, right ear; R03.0 Elevated blood-pressure reading, without diagnosis of hypertension; Z32.02 Encounter for pregnancy test, result negative; J45.909 Unspecified asthma, uncomplicated; K21.9 Gastro-esophageal reflux disease without esophagitis; Z79.899 Other long term (current) drug therapy; F41.9 Anxiety disorder, unspecified; F32.9 Major depressive disorder, single episode, unspecified; Z88.6 Allergy status to analgesic agent; Z88.0 Allergy status to penicillin; Z91.040 Latex allergy status; F17.210 Nicotine dependence, cigarettes, uncomplicated
CPT/HCPCS: 84702; 99213; G0463

== ENCOUNTER 2019-08-01 12:31 | Emergency (ER) | payer OTHER ==
[2019-08-01 13:17] VITALS: BP 162/80
--- NOTE | 2019-08-01 14:06 | UC ---
Throat Pain/Nasal Janusz HPI - HPI Summary HPI Summary: Patient presents to urgent care for evaluation of head congestion and cough postnasal drip progressive for about 10 days. Patient denies nausea vomiting. Patient has been taking DayQuil and NyQuil with little improvement. Last dose was yesterday. Patient denies any fevers. Patient states when she has coughing episode she takes her MDI that seems to help. patient denies sick contacts patient states the symptoms are most is significant congestion in her sinuses with postnasal drip and pressure. Patient states her teeth are slightly achy. When she blows her nausea and green discharge. Patient states she doesn't think she is but her periods are irregular regular and her last cycle was in May. Patient does not use control. Patient's medications as entered in the EMR reviewed this visit. - History of Current Complaint Chief Complaint: UCRespiratory Stated Complaint: SINUS/BODYACHES Time Seen by Provider: 08/01/19 13:32 Hx Obtained From: Patient Hx Last Menstrual Period: hx of irregular menses; unsure of last menses Pain Intensity: 10 - Allergies/Home Medications Allergies/Adverse Reactions: Allergies Allergy/AdvReac Type Severity Reaction Status Date / Time aspirin Allergy Altered Verified 08/01/19 13:09 Mental Status latex Allergy Hives Verified 08/01/19 13:09 Penicillins Allergy Airway Verified 08/01/19 13:09 Obstruction PMH/Surg Hx/FS Hx/Imm Hx Previously Healthy: Yes Other History Of: Negative For: HIV, Hepatitis B, Hepatitis C, Anticoagulant Therapy - Surgical History Surgical History: Yes Surgery Procedure, Year, and Place: "fluid removed from eardrums". Tonsillectomy. Adenoidectomy - Family History Known Family History: Positive: Cardiac Disease, Hypertension, Diabetes, Other - noncontributory, Non-Contributory Family History: NON CONTRIBUTORY - Social History Occupation: Employed Full-time Lives: With Family Alcohol Use: None Substance Use Type: None Substance Use Comment - Amount & Last Used: occasional use Smoking Status (MU): Light Every Day Tobacco Smoker Type: Cigarettes Amount Used/How Often: <1/2 PPD Have You Smoked in the Last Year: No Household Exposure Type: Cigarettes - Immunization History Most Recent Influenza Vaccination: fall 2015 Most Recent Tetanus Shot: unknown Most Recent Pneumonia Vaccination: never Review of Systems All Other Systems Reviewed And Are Negative: Yes ENT: Positive: Nasal Discharge, Sinus Congestion, Sinus Pain/Tenderness Respiratory: Positive: Cough Cardiovascular: Positive: Negative Physical Exam - Summary Physical Exam Summary: Vital Signs Reviewed: Yes A+Ox3, no distress Eyes: Conjunctiva Clear, DONALD. EOM intact and full ENT: Hearing grossly normal TM x 2 scant fluid right ear, turbinates inflammed and boggy, + PND, + max sinus pain L>R, mmoist, uvula midline, no exudate, no erythema Neck: Positive: Supple Respiratory: Positive: No respiratory distress, No accessory muscle use + CTA throughout no w/r Cardiovascular: RRR nl s1, s2 no m/r CBT <2 sec abd soft + BS nt/nd no guarding, no distension Musculoskeletal Exam: TIM x 4 without difficulty Strength Intact, ROM Intact Neurological: Positive: Alert, + sensation throughout Psychological: Positive: Normal Response To examiner Skin: Positive: no rash, no ecchymosis Triage Information Reviewed: Yes Vital Signs: Initial Vital Signs Temp 97.4 F 08/01/19 13:11 Pulse 79 08/01/19 13:11 Resp 18 08/01/19 13:11 BP 162/80 08/01/19 13:11 Pulse Ox 99 08/01/19 13:11 Throat Pain/Nasal Course/Dx - Course Course Of Treatment: Patient presents urgent care for evaluation of progressive sinus pressure congestion postnasal drip and cough. Patient states that using DayQuil and NyQuil short-term relief. Patient states she feels like it's causing her to feel difficulty breathing, stuffiness in her nose. Patient denies fevers, chills, or rashes. On exam vital signs are stable. Patient does have turbinates inflamed postnasal drip and pressure. Patient with slight cough. Exam consistent with sinusitis. We'll ensure she is not . 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 Will give Flonase and antibiotics. Patient states understanding and agreement with plan. We'll also note for work Pt with elevated BP - recommend f/u with PCP - Differential Dx/Diagnosis Provider Diagnosis: Rhinosinusitis Discharge ED - Sign-Out/Discharge Documenting (check all that apply): Patient Departure All imaging exams completed and their final reports reviewed: No Studies - Discharge Plan Condition: Stable Disposition: HOME Prescriptions: Azithromycin 500 mg PO DAILY #5 tablet Fluticasone NASAL SPRAY 50MCG* [Flonase NASAL SPRAY 50MCG*] 2 spray BOTH NARES DAILY #1 btl Patient Education Materials: Rhinosinusitis (ED) Forms: *Work Release Referrals: [facility] [Outside] Yonatan Watson NP [Primary Care Provider] - Additional Instructions: - Stay well hydrated. Drink plenty of non-alcoholic, non-caffinated beverages. - Alternate ibuprofen (Advil, Motrin) 600mg and Tylenol every 3 hours for pain or fever. Take with food. Do NOT take for more than 4-5 days. - These infections are spread by secretions - do NOT share eating or drinking utensils - clean items you share with other people such as cell phones, computer mouse, TV remote, computer tablets,etc. Once you have been antibiotics for 2 days, change your toothbrush and your pillowcase. - get plenty of restful sleep - humidify the air in the room where you sleep - boil water, run a hot steam shower, vaporizer, cups of water by heat register - okay to take over the counter decongestant and cough medication - use nasal spray as prescribed - contact your doctor or return with questions or concerns It is recommended you contact the physician referral center for assistance with referral to a payroll secretary to get routine care and discuss your irregular menstrual periods - Billing Disposition and Condition Condition: STABLE Disposition: Home
== END 2019-08-01 14:29 | disposition home or self-care (01) ==
LOC: UCCORT 12:31
DX: J32.9 Chronic sinusitis, unspecified (principal); Z88.6 Allergy status to analgesic agent; Z88.0 Allergy status to penicillin; Z91.040 Latex allergy status; F17.210 Nicotine dependence, cigarettes, uncomplicated
CPT/HCPCS: 84702; 99212; G0463